=== PATIENT | male | born 1965 | race Caucasian/White ===

== ENCOUNTER 2022-08-21 08:57 | Outpatient (CLI) | payer BC, SELFPAY | END 2022-08-21 08:58 | disposition home or self-care (01) | PROVIDERS: PCP Physician Assistant Medical; Visit Provider Physician Assistant Medical | DX: Z00.00 Encounter for general adult medical examination without abnormal findings (principal); E66.9 Obesity, unspecified; I10 Essential (primary) hypertension; E78.5 Hyperlipidemia, unspecified; Z12.5 Encounter for screening for malignant neoplasm of prostate | CPT/HCPCS: 80053; 80061; 84153 ==

== ENCOUNTER 2023-08-25 10:40 | Outpatient (CLI) | payer BC, SELFPAY | END 2023-08-25 10:41 | disposition home or self-care (01) | PROVIDERS: PCP Physician Assistant Medical; Visit Provider Physician Assistant Medical | DX: E78.2 Mixed hyperlipidemia (principal); I10 Essential (primary) hypertension; Z12.5 Encounter for screening for malignant neoplasm of prostate; Z13.29 Encounter for screening for other suspected endocrine disorder; Z11.9 Encounter for screening for infectious and parasitic diseases, unspecified | CPT/HCPCS: 80053; 80061; 84443; 86703; 86803; G0103 ==

== ENCOUNTER 2024-08-25 08:28 | Outpatient (CLI) | payer BC, SELFPAY | END 2024-08-25 08:29 | disposition home or self-care (01) | PROVIDERS: PCP Physician Assistant Medical; Visit Provider Physician Assistant Medical | DX: Z00.01 Encounter for general adult medical examination with abnormal findings (principal); E78.5 Hyperlipidemia, unspecified; I10 Essential (primary) hypertension; F32.A Depression, unspecified; Z12.5 Encounter for screening for malignant neoplasm of prostate | CPT/HCPCS: 80053; 80061; 84443; G0103 ==